=== PATIENT | male | born 1990 | race Caucasian/White ===

== ENCOUNTER 2017-05-24 20:17 | Emergency (ER) | payer OTHER ==
[~2017-05-24] VITALS: Ht 172.7 cm; Wt 84.1 kg
[2017-05-24 20:19] VITALS: BP 123/79; PULSE 73; TEMP 98.2
[2017-05-24] MEDS ORDERED: ILOTYCIN5 MG/GM OU (21:20)
== END 2017-05-24 22:29 | disposition home or self-care (01) ==
LOC: COL.ER 20:17
DX: T52.0X1A Toxic effect of petroleum products, accidental (unintentional), initial encounter (principal); H10.213 Acute toxic conjunctivitis, bilateral; Y92.219 Unspecified school as the place of occurrence of the external cause
CPT/HCPCS: J7120